=== PATIENT | female | born 1950 | race Caucasian/White ===

== ENCOUNTER 2019-12-13 14:33 | Emergency (ER) | payer MEDICARE ==
[~2019-12-13] VITALS: Ht 157.5 cm; Wt 104.5 kg
[2019-12-13] MEDS ORDERED: HYDROcodone/acetaminophen 5mg/325mg tablet PO ONE (15:05)
[2019-12-13 15:10] VITALS: BP 172/80
[2019-12-13] MEDS ORDERED: HYDR-4383 PO (15:28)
[2019-12-13] MEDS ORDERED: ONDA4TAB6 PO (15:28)
== END 2019-12-13 16:00 | disposition home or self-care (01) ==
LOC: ER 14:33
DX: S42.202A Unspecified fracture of upper end of left humerus, initial encounter for closed fracture (principal); E78.00 Pure hypercholesterolemia, unspecified; Z88.2 Allergy status to sulfonamides; Z79.899 Other long term (current) drug therapy; W18.30XA Fall on same level, unspecified, initial encounter; Y93.89 Activity, other specified; Y92.096 Garden or yard of other non-institutional residence as the place of occurrence of the external cause; Y99.8 Other external cause status
CPT/HCPCS: 73030; 99284